=== PATIENT | female | born 1940 | race Caucasian/White ===

== ENCOUNTER 2017-02-23 09:42 | Emergency (ER) | payer MEDICARE, OTHER | END 2017-02-23 11:38 | disposition home or self-care (01) | LOC: ER 09:42 | DX: R05 Cough (principal); I10 Essential (primary) hypertension; Z90.710 Acquired absence of both cervix and uterus; Z79.899 Other long term (current) drug therapy | CPT/HCPCS: 71020; 99283; 99283-25 ==